=== PATIENT | female | born 1980 | race Native Hawaiian/Other Pacific Islander ===

== ENCOUNTER 2019-01-10 07:46 | Inpatient (IN) | payer BC ==
[2019-01-10 08:14] VITALS: BMI 23.2
[2019-01-10] MEDS ORDERED: Oxytocin 30 UNIT in NS 500 ml 30 UNITS/500 ML BAG IV ONE (08:14)
[2019-01-10] MEDS ORDERED: OXYTOCIN/0.9 % NS 20 UNIT/1,000 ML BAG IV ONE (08:15)
[2019-01-10] MEDS ORDERED: Lactated Ringer's 1,000 ML IV ONE ×2 (08:15→08:16)
[2019-01-10] MEDS ORDERED: Oxytocin 10 Units/ml Inj ONE (08:36)
[2019-01-10 08:40] LABS: BASO # 0.1 K/uL (0.0-0.2); BASO % 0.7 % (0.0-2.0); EOS # 0.2 K/uL (0.0-0.7); EOS % 2.1 % (0.0-4.0); LYMPH # 1.5 K/uL (1.0-4.3); MEAN CELL VOLUME 95.6 fl (81.0-99.0); MEAN CORPUSCULAR HEMOGLOBIN 32.5 pg (27.0-31.0); MEAN PLATELET VOLUME 11.4 fl (7.2-11.7); MONO # 0.5 K/uL (0.0-0.8); MONO % 6.1 % (0.0-10.0); NEUT # 6.1 K/uL (1.8-7.0); NEUT % 73.1 % (50.0-75.0); NRBC % 0.1 % (0.0-0.0); RBC 4.01 Mil/uL (3.80-5.20); WHITE BLOOD COUNT 8.3 K/uL (4.8-10.8)
[2019-01-10] MEDS ORDERED: Midazolam 2 MG/2 ML VIAL ONE (08:51)
[2019-01-10] MEDS ORDERED: Propofol 10 mg/ml Inj (20 ML) ONE (08:52)
[2019-01-10] MEDS ORDERED: Benzocaine/Menthol SPRAY TOP PRN ×2 (08:56→09:32)
[2019-01-10] MEDS ORDERED: Oxycodone/Acetaminophen 5/325 mg Tab PO PRN ×3 (08:56→09:32)
[2019-01-10 09:31] LABS: BASO % 0.5 % (0.0-2.0); EOS # 0.1 K/uL (0.0-0.7); EOS % 0.8 % (0.0-4.0); LYMPH # 0.5 K/uL (1.0-4.3); LYMPH % 6.2 % (20.0-40.0); MEAN CELL VOLUME 96.6 fl (81.0-99.0); MEAN CORPUSCULAR HEMOGLOBIN 32.7 pg (27.0-31.0); MEAN CORPUSCULAR HGB CONC 33.8 g/dL (33.0-37.0); MEAN PLATELET VOLUME 10.5 fl (7.2-11.7); MONO # 0.2 K/uL (0.0-0.8); MONO % 3.1 % (0.0-10.0); NEUT # 6.7 K/uL (1.8-7.0); NEUT % 89.4 % (50.0-75.0); PLATELET COUNT 99 K/uL (130-400); RBC 2.92 Mil/uL (3.80-5.20); RED CELL DISTRIBUTION WIDTH 12.5 % (11.5-14.5); WHITE BLOOD COUNT 7.5 K/uL (4.8-10.8)
[2019-01-10] MEDS ORDERED: Oxytocin 10 Units/ml Inj IM ONE (09:39)
--- NOTE | 2019-01-10 09:51 | OBDS ---
DELIVERY PERSONNEL Delivery Doctor: Jacinto Bullard MD Commercial Maintenance Technician: Monica Niño RN (Annotations: Data stored by [facility] on behalf of user) MATERNAL INFORMATION Delivery Anesthesia: Local Placenta Cultured: No Provider Comments: of live female over intact perineum in OA presentation, followed by marcella campos and rest of infant, mouth suctioned, cord cut and cord banking blood obtained, placenta deli babita spontaneously, 30ml Lidocaine injected locally, deep sulcal tear repaired with conscious sedati on, 0 Vicry and 2-0 Vicryl repaired, PZH=[id number], pt given 2900mL Lactated ringers given, bedside Hgb a nd type and cross obtained. Ancef 12gm IV given at bedside STAGES OF LABOR Stage 3 hrs: 0 Stage 3 min: 9 BABY A INFORMATION Infant Delivery Date/Time: 01/10/2019 08:27 Method of Delivery: Vaginal Born in Route : No : N/A Forceps: N/A Vacuum Extraction: N/A Shoulder Dystocia : No SHOULDER DYSTOCIA BABY A Infant Delivery Date/Time: 01/10/2019 08:27 PRESENTATION/POSITION BABY A Presentation: Cephalic PLACENTA INFORMATION BABY A Placenta Delivery Time : 01/10/2019 08:36 Placenta Method of Delivery: Spontaneous Placenta Status: Delivered SCORES BABY A Heart Rate 1 min: >100 bpm Resp Effort 1 min: Good Cry Reflex Irritability 1 min: Cough or Sneeze or Pulls Away Muscle Tone 1 min: Active Motion Color 1 min: Body [place], Extremities Blue Resuscitation Effort 1 min: Tactile Stimulation SCORE 1 MIN: 9 Heart Rate 5 min: >100 bpm Resp Effort 5 min: Good Cry Reflex Irritability 5 min: Cough or Sneeze or Pulls Away Muscle Tone 5 min: Active Motion Color 5 min: Body [place], Extremities Blue Resuscitation Effort 5 min: N/A SCORE 5 MIN: 9 INFORMATION BABY A Gestational Age at Delivery: 40.0 Gestational Status: Term Infant Outcome : Liveborn Infant Condition : Stable Sex: Female WEIGHT/LENGTH BABY A Infant Birthweight (gms): 3270 Weight (lb): 7 Infant Weight (oz): 3 CORD INFORMATION BABY A Nuchal Cord : N/A Cord Blood Taken: No Infant Suction: Mouth
[2019-01-10] MEDS ORDERED: ceFAZolin 2 GM in Sodium Chloride 0.9% 100 ML IVPB ONE (10:00)
[2019-01-10] MEDS: Lactated Ringer's 1,000 ML IV SCH ×2 (10:00→16:18)
[2019-01-10 10:16] LABS: HEMOGLOBIN 9.5 g/dL (12.0-16.0)
--- NOTE | 2019-01-10 11:09 | OBADHP ---
Datetime: 01/10/2019 10:53 Admit Comment, IP Provider: 38 yo with IUP at EGA of 40.4 wk LUIZA 01/08/2019, LMP of 04/03/18, who presents to [facility] in active labor. Pt had contractions every 2-3cm apart. Denies LOF or vaginal bleedi ng. Reports good movements. Denies fever, chills, dizziness, headaches, blurry vision, N/V/D/C, CP, SOB or dysuria. 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 Plan: -Admit to L _ D -Initiate labor protocol, IVF, pain control, pitocin -Maternal VS monitoring -IVF's, regular diet -Precipitous delivery, Pitocin and Methergine IM -Type and screen, crossed 2 units Case reviewed and discussed with Dr Juan Miguel Taylor PGY1 Addendum by Dr. Bullard: I have evaluated the patient independently and I agree with the above. The patient presented and immenently delivered. See delivery note Extremities - PN: Normal Abdomen - PN: Normal Lungs - PN: Normal Heart - PN: Normal HEENT - PN: Normal General - PN: Normal Presentation-Admit: Vertex Comments, ACOG Physical Exam: GEN: Very uncomfortable in pain HEENT: NCAT CARD: RRR + S1S2 RESP: CTA, no wheezing, rales or rhonchi GI: Gravid, + BS, no tenderness to palpation EXT: No edema, no calf tenderness Bimanual 10cm IP Hx Assessment: The History has been Reviewed and is Current Vital Signs Provider: Reviewed; Within Normal Limits IP Chief Complaint: Uterine contractions Dilatation, Provider: 10 EGA AdmitDate IP: 40.4 IP Adm Impression: Term, intrauterine ; Active labor IP Admit Plan: Admit to unit; Initiate labor protocol Datetime: 01/10/2019 09:44 Genitourinary Exam: Normal
[2019-01-10 12:01] LABS: BANDS 1 % (0-2); EOSINOPHIL 1 % (0-7); LYMPHOCYTE 7 % (20-50); MONOCYTE 3 % (0-10); NEUTROPHIL 88 % (42-75); TOTAL CELLS COUNTED 100
[2019-01-10 12:02] LABS: HYPOCHROMIC SLIGHT; LARGE PLATELETS PRESENT; PLATELET ESTIMATE SLIGHTLY DECREASED (NORMAL)
[2019-01-10 12:03] VITALS: TEMP 98.3
[2019-01-10 14:27] LABS: BASO # 0.1 K/uL (0.0-0.2); BASO % 0.5 % (0.0-2.0); EOS % 0.2 % (0.0-4.0); HEMOGLOBIN 8.3 g/dL (12.0-16.0); LYMPH # 0.9 K/uL (1.0-4.3); MEAN CELL VOLUME 95.2 fl (81.0-99.0); MEAN CORPUSCULAR HEMOGLOBIN 31.7 pg (27.0-31.0); MEAN CORPUSCULAR HGB CONC 33.3 g/dL (33.0-37.0); MEAN PLATELET VOLUME 10.6 fl (7.2-11.7); MONO # 0.6 K/uL (0.0-0.8); MONO % 4.5 % (0.0-10.0); NEUT # 11.2 K/uL (1.8-7.0); NEUT % 87.8 % (50.0-75.0); RBC 2.62 Mil/uL (3.80-5.20); RED CELL DISTRIBUTION WIDTH 12.6 % (11.5-14.5); WHITE BLOOD COUNT 12.8 K/uL (4.8-10.8)
[2019-01-11] MEDS ORDERED: Oxycodone/Acetaminophen 5/325 mg Tab PO PRN ×2 (00:27)
[2019-01-11 08:00] LABS: BASO % 0.4 % (0.0-2.0); EOS # 0.2 K/uL (0.0-0.7); EOS % 1.8 % (0.0-4.0); HEMOGLOBIN 7.2 g/dL (12.0-16.0); LYMPH # 1.4 K/uL (1.0-4.3); LYMPH % 13.5 % (20.0-40.0); MEAN CORPUSCULAR HEMOGLOBIN 32.5 pg (27.0-31.0); MEAN CORPUSCULAR HGB CONC 33.9 g/dL (33.0-37.0); MEAN PLATELET VOLUME 10.3 fl (7.2-11.7); MONO # 0.6 K/uL (0.0-0.8); MONO % 5.6 % (0.0-10.0); NEUT # 7.9 K/uL (1.8-7.0); NEUT % 78.7 % (50.0-75.0); RBC 2.21 Mil/uL (3.80-5.20); RED CELL DISTRIBUTION WIDTH 12.8 % (11.5-14.5)
[2019-01-11] MEDS: Multivitamin With Minerals Tab PO SCH (08:43)
--- NOTE | 2019-01-11 08:52 | OBPPN ---
Datetime: 01/11/2019 07:44 PP Pain Prov: Within normal limits PP Nausea Prov: Denies PP Flatus Prov: Yes PP BM Prov: No PP Breasts Prov: Not Done PP Heart Prov: Normal PP Lungs Prov: Normal PP Abdomen/Uterus Prov: Normal PP Lochia Prov: Normal PP Vulva/Perineum Prov: Normal PP CVA Tenderness Prov: Normal PP Extremities Prov: Normal PP C/S Incision Prov: Not Applicable PP Progress Prov: Normal PP Impression Prov: Normal progression PP Plan Prov: Continue present management PP Progress Note Prov: S: 38 yo s/p on 01/10/19, PPD1. Patient had PPH and packing was plac ed. Garay was removed. Pt was seen and examined at bedside this AM. No overnight events. Pain is mini mal. Ambulating and tolerating PO diet without difficulty. Breast feeding. Lochia < menses. +Flatus/- BM. Denies dizziness, orthostatic changes, changes in vision, palpitations, chest pain, fever, chil ls, diarrhea, nausea and vomiting. O: VS: Stable overnight GEN: NAD Cardio: S1S2, no murmurs Lungs: clear breath sounds b/l, no wheezing Abdomen: BS+, appropriate tenderness to palpation. Uterus is firm and at the level of the umbilic us. EXT: No edema, calves non-tender NEURO/PSYCH: AAOx3, no grossly focal deficits, preserved affect and mood. H/H: aCBC: 12.7/39.6 pCBC: pending Assessment/Plan: : 38 yo s/p on 01/10/19, PPD1. Patient had PPH- Garay has been removed si nce then and packing is in place. Pt remains afebrile, tolerating pain. -Regular diet -Anticipate discharge, 01/12/19 -Continue with current management -Encourage and ambulating -Colace 100mg BID -Ibuprofen 600mg q6 for pain Clau Chamberlain, PGY 1 OB Hospitalist Addendum: Pt seen and examined by me. Agree w/ above. PPD1 s/p , PPH, packing removed this am, doing well, breast feeding. Continue current management. (ES) IP PP Procedures: None Vital Signs Provider PP: Reviewed; Within Normal Limits
[2019-01-11] MEDS ORDERED: Multivitamin With Minerals Tab PO SCH (09:00)
[2019-01-11] MEDS: Benzocaine/Menthol SPRAY TOP PRN (11:29)
[2019-01-12 09:16] LABS: HEMOGLOBIN 7.7 g/dL (12.0-16.0); MEAN CELL VOLUME 96.4 fl (81.0-99.0); MEAN CORPUSCULAR HGB CONC 34.2 g/dL (33.0-37.0); RBC 2.34 Mil/uL (3.80-5.20); RED CELL DISTRIBUTION WIDTH 12.8 % (11.5-14.5); WHITE BLOOD COUNT 10.4 K/uL (4.8-10.8)
[2019-01-12] MEDS: Multivitamin With Minerals Tab PO SCH (09:37)
[2019-01-12] MEDS: Benzocaine/Menthol SPRAY TOP PRN (09:37)
--- NOTE | 2019-01-12 10:27 | OBPPN ---
Datetime: 01/12/2019 07:46 PP Pain Prov: Within normal limits PP Nausea Prov: Denies PP Flatus Prov: Yes PP BM Prov: Yes PP Heart Prov: Normal PP Lungs Prov: Normal PP Abdomen/Uterus Prov: Normal PP Lochia Prov: Normal PP Vulva/Perineum Prov: Normal PP Extremities Prov: Normal PP C/S Incision Prov: Not Applicable PP Progress Prov: Normal PP Comments Phys Exam Prov: GEN: Lying in bed NAD HEENT: NCAT CARD: RRR + S1S2 RESP: CTA, no wheezing, rales or rhonchi GI: + BS, nontender to palpation, Fundus firm below umbilicus EXT: No edema, no calf tenderness PP Impression Prov: Normal progression PP Plan Prov: Discharge PP Progress Note Prov: S: 38 yo s/p on 01/10/19, PPD2. Patient had PPH s/p packing removed. Pt was seen and examined at bedside this AM. No overnight events. Reports pain near stiches sometime s worse than others. Ambulating and tolerating PO diet without difficulty. Breast feeding without dif ficulty. Lochia like menses. + Flatus/+ BM. Denies dizziness, SOB, chest pain, fever, chills, consti pation,diarrhea, nausea, vomiting or dysuria. O: VS: Stable overnight GEN: NAD Cardio: S1S2, no murmurs Lungs: clear breath sounds b/l, no wheezing, rales or rhonchi Abdomen: BS+, nontender to palpation. Uterus is firm below level of the umbilicus. EXT: No edema, calves non-tender H/H: aCBC: 12.7/39.6 pCBC: 7.2/21.2 on Ferrous supplementation Assessment/Plan: : 38 yo s/p on 01/10/19, PPD2. Patient had PPH Garay and packing has been removed. Pt remains afebrile, tolerating pain. -D/C home today -Regular diet -Encourage and ambulating -Ibuprofen 600mg q6 for pain # 30 -Pt will follow up with [facility] for Post appt and Dr. Iqbal junior analyst appt Case reviewed and discussed with attending Ching Taylor, PGY [address] Bullard: I have evaluated the patient independently and I agree with the above IP PP Procedures: None Vital Signs Provider PP: Reviewed; Within Normal Limits Vital Signs Provider Details PP: BP 108/67
--- NOTE | 2019-01-12 10:30 | OBDCSUM ---
Datetime: 01/12/2019 07:56 Discharged to, Provider: Home Follow up at, Provider: [facility] office/Dr. Iqbal Disch Instr Activity: Normal activity Disch Instr Diet: Regular Discharge Instructions, Provider: Routine instructions given Discharge Diagnosis, Provider: Term Delivered Discharge Time: 01/12/2019 07:56 Follow up in weeks, Provider: 4-6 wks post , 2-3 days Motor Equipment Captain Disch Referrals: None Contraception discussed, Prov: Yes Disch Activity Restrictions: Minimize stair-climbing; No sexual activity; Nothing in vagina - Interc ourse, tampons, douche Discharge Comment, Provider: Encourage PNV 1 tab po q/day Ibuprofen 600 mg 1 tab po prn q4-6 if moderate pain #30. NO REFILL. Ambulatory with caution, nothing per vagina/sex for 4 weeks, no heavy lifting, avoid stairs, if ex cessive bleeding or fever without relief from Tylenol go to ED F/U at Dr. Iqbal 2-3 days for appt and [facility] in 4-6 weeks for post appt Contraception after Delivery: Undecided
[2019-01-12 19:27] VITALS: BP 97/68; PULSE 77; RESP 20; O2SAT 100
== END 2019-01-12 14:55 | disposition home or self-care (01) | DRG 807 ==
LOC: EDBD 07:46 → H.EROB2 07:46 → H.L&D 08:15 → H.OB/GYN 16:00
PROVIDERS: ADMIT Obstetrics & Gynecology; ATTEND Obstetrics & Gynecology
PROC: 10E0XZZ Delivery of Products of Conception, External Approach (ICD-10-PCS; principal; 2019-01-10)
PROC: 0KQM0ZZ Repair Perineum Muscle, Open Approach (ICD-10-PCS; 2019-01-10)
PROC: 4A1HXCZ Monitoring of Products of Conception, Cardiac Rate, External Approach (ICD-10-PCS; 2019-01-10)
DX: O70.1 Second degree perineal laceration during delivery (principal); Z37.0 Single live birth; Z3A.40 40 weeks gestation of pregnancy